=== PATIENT | male | born 1980 | race Caucasian/White ===

== ENCOUNTER 2019-07-25 01:20 | Observation (INO) ==
[2019-07-25] MEDS ORDERED: *HR* LORazepam 2 MG/ML VIAL IM ONE (10:02)
[2019-07-25] MEDS ORDERED: Haloperidol Lactate 5 MG/ML VIAL IM PRN (14:31)
[2019-07-25] MEDS ORDERED: hydrOXYzine pamoate 25 MG CAPSULE PO PRN (14:31)
[2019-07-25] MEDS ORDERED: *HR* LORazepam 2 MG/ML VIAL IM PRN (14:31)
[2019-07-25] MEDS ORDERED: MOM Conc 10 ML UD.LIQ PO PRN (14:31)
[2019-07-25] MEDS ORDERED: Mag Hydrox/Al Hydrox/Simeth 30 ML UDC PO PRN (14:31)
[2019-07-25] MEDS ORDERED: traZODone 50 MG TABLET PO PRN (14:31)
[2019-07-25] MEDS ORDERED: *HR* LORazepam 1 MG TABLET PO PRN (14:31)
[2019-07-25] MEDS ORDERED: Ibuprofen 400 MG TABLET PO PRN (14:31)
[2019-07-26] MEDS: Nicotine 21 MG PATCH.TD24 TD SCH (08:59)
[2019-07-27] MEDS: Nicotine 21 MG PATCH.TD24 TD SCH (09:00)
[2019-07-27 12:35] VITALS: BP 145/92
== END 2019-07-27 18:14 | disposition home or self-care (01) ==
LOC: 1ANU 01:20 → EMEROOARM 01:20 → 1ANU 14:50
PROVIDERS: ADMIT Psychiatry & Neurology Psychiatry; ATTEND Psychiatry & Neurology Psychiatry